=== PATIENT | male | born 1985 | race African-American/Black ===

== ENCOUNTER 2017-08-01 09:45 | Inpatient (IN) | payer MEDICARE, OTHER, MEDICAID ==
[~2017-08-01 09:45] MED LIST: ISOVUE-370 76%-LOCM 1 ML ONE; Iopamidol 370 76% 50 ML VIAL FS ONE
[2017-08-01 10:50] LABS: #Lymphocytes 1.4 thou/uL (1.20-3.40); #Monocytes 1.2 thou/uL (0.11-0.59); #Neutrophils 7.2 thou/uL (1.40-6.50); %Basophils 0.2 % (0.0-1.0); %Eosinophils 0.2 % (0.0-10.0); %Lymphocytes 14.5 % (21.0-51.0); %Monocytes 12.1 % (0.0-10.0); Bilirubin Negative (Negative); Blood, Urine Trace (Negative); Glucose, Urine (Dipstick) Negative (Negative); Hematocrit 41.5 % (42.0-52.0); Ketone, Urine Negative (Negative); Mean Platelet Volume 7.2 fL (7.4-10.4); Nitrite Negative (Negative); Protein, Urine (Dipstick) Negative (Neg-Trace); Red Blood Cell (RBC) Count 4.31 mill/uL (4.70-6.10); White Blood Cell (WBC) Count 9.9 thou/uL (4.8-10.8)
[2017-08-01] MEDS ORDERED: Ondansetron HCl/PF 4 MG/2 ML Vial ONE (11:02)
[2017-08-01] MEDS ORDERED: Morphine 4 MG/ML VIAL ONE (11:02)
[2017-08-01 11:04] LABS: Bacteria/HPF 1+ HPF (None Seen); Hyaline Casts/LPF NONE SEEN LPF (0-3 Hyaline); RBC/HPF None Seen HPF (0-3); Squamous Epithelial 0-3 HPF (0-3); WBC/HPF 0-3 HPF (0-3)
[2017-08-01 11:13] LABS: ALT (SGPT) 14 U/L (8-55); AST (SGOT) 16 U/L (5-34); Alkaline Phosphatase 57 U/L (40-150); Anion Gap 10 mmol/L (10-20); BUN (Urea Nitrogen) 14 mg/dL (8.9-20.6); Bilirubin, Total 0.9 mg/dL (0.2-1.2); Calc. Creatinine Clearance 0 mL/min (70-130); Calcium 9.7 mg/dL (7.8-10.44); Carbon Dioxide 30 mmol/L (22-29); Chloride 100 mmol/L (98-107); Estimated GFR-MDRD Greater than 90; Globulin 3.2 g/dL (2.4-3.5); Lipase 6 U/L (8-78); Protein, Total 7.2 g/dL (6.0-8.3)
[2017-08-01] MEDS ORDERED: Piperacillin/Tazobactam 4.5 GM in Sodium Chloride 0.9% 100 ML IVPB SCH (13:15)
--- NOTE | 2017-08-01 13:28 | CT ---
CT ABDOMEN AND PELVIS WITH CONTRAST: Date: 08/01/17 Multiple axial tomograms obtained through abdomen and pelvis with IV enhancement. Oral contrast was a dministered. HISTORY: Right lower quadrant pain. FINDINGS: Lung bases clear. Liver, spleen, and pancreas appear unremarkable. Adrenal glands and kidneys appear normal. Small bowel loops appear normal caliber. There is inflammatory process in the right lower quadrant which appears to involve the appendix. Ther e is evidence of an appendicolith. The proximal appendix is not well delineated and there is a small abscess collection measuring approximately 4.1 cm AP dimension x 2.0 cm width in the axial plane, and approximately 2.0 cm craniocaudal in the coronal plane. This small abscess collection is located at the base of the appendix and would suggest appendiceal rupture with small associated confined abscess . IMPRESSION: Evidence of confined abscess in the right lower quadrant, which appears to be associated with inflame d appendix. This indicates probable rupture of inflamed appendix with small abscess involving the pro ximal portion of the appendix. Call was made to the ER to discuss the case with Dr. Veloz at the time of dictation. A message was left for him to return call to radiology regarding this case. CODE CR. POS: [facility]
[2017-08-01] MEDS ORDERED: Dextrose 5% in Water 1,000 ML IV PRN (14:11)
[2017-08-01] MEDS ORDERED: Ondansetron HCl/PF 4 MG/2 ML Vial IVP PRN (14:11)
[2017-08-01] MEDS ORDERED: Dextrose 50% Abboject 50 ML SYRINGE SLOW IVP PRN (14:11)
--- NOTE | 2017-08-01 15:00 | HP ---
DATE OF ADMISSION: 08/01/2017 HISTORY OF PRESENT ILLNESS: This is a 31-year-old man with a history of autism and ADHD. The patien t is a resident of a jail. The patient was brought to the emergency department today accompani ed by his healthcare provider. Apparently, the patient has been complaining of abdominal pain since 4 days ago associated with multiple episodes of nonbilious emesis. The abdominal pain was preceded b y multiple loose stools. Although, the patient has had no fevers or chills, he is unable to provide history. Patient's sister arrived later and reports that the patient was adopted. PAST MEDICAL HISTORY: Pertinent for ADHD and cleft palate. PAST SURGICAL HISTORY: Pertinent for facial surgeries to correct a cleft palate. SOCIAL HISTORY: Patient is a resident of a jail. PRE-HOSPITALIZATION MEDICATIONS: Includes trazodone 150 mg p.o. at bedtime, Seroquel 200 mg p.o. t.i .d., and Restoril 15-30 mg p.o. at bedtime p.r.n. ALLERGIES: Patient has no known drug allergies. REVIEW OF SYSTEMS: A 10-point review of systems essentially unremarkable except for as stated in pas t medical history and chief complaint. PHYSICAL EXAMINATION: GENERAL: This reveals a 31-year-old young man who has a history of autism and ADHD, who appears to b e in no acute distress at the time of my evaluation. VITAL SIGNS: Includes blood pressure 124/68, pulse is 98, respiratory rate is 15, temperature 98.5 d egrees Fahrenheit, oxygen saturation 96% on room air. HEENT: Reveals normocephalic and atraumatic. Pupils are equal, round, and reactive to light and acc ommodation. Extraocular muscles are intact bilaterally. No sclerae icterus is present. HEART: Reveals regular rate and rhythm, no murmurs or gallops auscultated. LUNGS: Clear to auscultation bilaterally. Breathing is regular and unlabored. ABDOMEN: Soft and nondistended. He has a palpable fullness in the right lower quadrant, which is te nder to palpation. He has a positive Rovsing sign. Liver and spleen are otherwise nonpalpable below costal margins. EXTREMITIES: Reveals 2+ radial and pedal pulses bilaterally. No ankle edema is present. NEUROLOGICAL: Examination reveals no focal deficits present. IMAGING: I have personally reviewed the CT scan of the abdomen and pelvis, which was obtained today. This reveals moderate size appendicolith as well as periappendiceal fat stranding and 4.1 x 2.0 cm fluid collection with air pockets consistent with periappendiceal abscess. LABORATORY STUDIES: Includes a CBC with 9900 white blood cells, hemoglobin 14.3, hematocrit is 41.5, platelet count is 158,000. Metabolic profile: Sodium 137, potassium is 3.4, chloride is 100, bicar bonate 30, BUN 14, creatinine 0.89, glucose 94, AST and ALT are both normal at 16 and 14 respectively . Serum lipase is also normal at 6. IMPRESSION: 1. Acute appendicitis with perforation. 2. Periappendiceal pelvic abscess. 3. Acute hypokalemia. 4. History of autism. 5. History of attention deficit hyperactivity disorder. PLAN: 1. Continue broad spectrum antibiotics. 2. Laparoscopic appendectomy and drainage of periappendiceal pelvic abscess. Above findings and plan discussed with the patient and his family at bedside. They indicated underst anding of information given. I have answered their questions. The patient's family has granted cons ent for this admission and surgical intervention.
[2017-08-01] MEDS: Sodium Chloride 0.9% 1,000 ML IV SCH (16:15)
[2017-08-01] MEDS ORDERED: Morphine 4 MG/ML VIAL IV PRN (16:30)
[2017-08-01 17:14] VITALS: BMI 23.8
[2017-08-01] MEDS ORDERED: Morphine PF 1 MG/ML SYR IVP PRN (17:52)
[2017-08-01] MEDS: Piperacillin/Tazobactam 3.375 GM in Sodium Chloride 0.9% 100 ML IVPB SCH ×2 (18:06→23:55)
[2017-08-01] MEDS: Morphine PF 1 MG/ML SYR IVP PRN ×2 (18:07→21:56)
[2017-08-01] MEDS: traZODone HCl 150 MG TAB PO SCH (21:35)
[2017-08-01] MEDS: Enoxaparin Sodium 40 MG/0.4 ML SYRINGE SC SCH (21:36)
[2017-08-02] MEDS: Piperacillin/Tazobactam 3.375 GM in Sodium Chloride 0.9% 100 ML IVPB SCH ×4 (05:07→23:58)
[2017-08-02] MEDS: Sodium Chloride 0.9% 1,000 ML IV SCH ×3 (05:07→21:23)
[2017-08-02 05:36] LABS: #Eosinphils 0.1 thou/uL (0.0-0.7); #Lymphocytes 1.8 thou/uL (1.20-3.40); #Monocytes 0.9 thou/uL (0.11-0.59); #Neutrophils 5.7 thou/uL (1.40-6.50); %Basophils 0.2 % (0.0-1.0); %Eosinophils 1.4 % (0.0-10.0); %Monocytes 10.1 % (0.0-10.0); Hematocrit 37.6 % (42.0-52.0); Mean Platelet Volume 7.8 fL (7.4-10.4); Red Blood Cell (RBC) Count 3.93 mill/uL (4.70-6.10); White Blood Cell (WBC) Count 8.4 thou/uL (4.8-10.8)
[2017-08-02 05:43] LABS: Anion Gap 8 mmol/L (10-20); BUN (Urea Nitrogen) 8 mg/dL (8.9-20.6); Calc. Creatinine Clearance 125 mL/min (70-130); Calcium 8.6 mg/dL (7.8-10.44); Carbon Dioxide 28 mmol/L (22-29); Chloride 106 mmol/L (98-107); Estimated GFR-MDRD Greater than 90
[2017-08-02] MEDS ORDERED: Fentanyl 100 MCG/2 ML VIAL ONE (06:45)
[2017-08-02] MEDS ORDERED: Bupivacaine/Epinephrine 0.25% 30 ML VIAL ONE (06:46)
[2017-08-02] MEDS ORDERED: traMADol HCl 50 MG TAB PO PRN (08:56)
--- NOTE | 2017-08-02 09:23 | OP ---
DATE OF OPERATION: 08/02/2017 PREOPERATIVE DIAGNOSES: 1. Acute appendicitis with perforation. 2. Periappendiceal pelvic abscess. POSTOPERATIVE DIAGNOSES: 1. Acute appendicitis with perforation. 2. Periappendiceal pelvic abscess. OPERATIONS PERFORMED: 1. Laparoscopic appendectomy. 2. Drainage of pelvic abscess. SURGEON: Abel Kilpatrick D.O. ANESTHESIA: General endotracheal. ESTIMATED BLOOD LOSS: 20 mL. FLUIDS GIVEN: 700 mL of crystalloids. COUNTS: Sponge and instrument count are certified as correct x2. COMPLICATIONS: None apparent at time of operation. INDICATIONS FOR PROCEDURE: This is a 31-year-old man with history of autism and ADHD. The patient p resented with 4-5 day history of abdominal pain. Clinical and radiographic examination was consisten t with acute appendicitis with perforation and periappendiceal and pelvic abscess. The patient was b rought to the operating room for appendectomy. Findings are consistent with suppurative appendix in a retrocecal position. Also noted was loculated periappendiceal pelvic abscess with significant amount of inflammation. DESCRIPTION OF PROCEDURE: Informed consent obtained from the patient's power of bellhop captain. The patie nt was brought to the operating room and placed in supine position. Following general anesthesia, th e abdomen is sterilely prepped and draped in the usual fashion. Skin below the umbilicus was infiltr ated with 0.25% Marcaine with epinephrine. A small curvilinear infraumbilical incision is made using an 11 scalpel. Umbilical stalk was grasped with Andrés and elevated. Veress needle was inserted th rough the incision and placed in the peritoneal cavity through which the abdomen was insufflated with 2.5 liters of CO2 gas. Intra-abdominal pressure was noted at 1 mmHg. Following abdominal insufflat ion, Veress needle was removed and a 5 mm trocar was introduced using a Visiport under laparoscopy. Laparoscopy reveals proper placement of the port, no injuries to underlying structures. Under direct laparoscopy, a 12 mm left lower quadrant and a 5 mm suprapubic ports were placed after the overlying skin was infiltrated with 0.25% Marcaine with epinephrine and appropriate incisions made. The patient is placed in a Trendelenburg position rotated to his left. I introduced Prestige grasper through the left lower quadrant port site using this to take down omental adhesions which was obscur ing the right lower quadrant. Moderate amount of purulent pus was evacuated using suction. The term inal ileum was placed to approximately 2 feet from the ileocecal junction and I do not see any Meckel 's. Retrocecal suppurative appendix was identified and brought into the operative field. An Endo Ba bcock forceps was introduced through the suprapubic port site grasping the appendix which was elevate d. I then used a [place] dissector to create a rent through the mesoappendix at the base. I then u sed a white load of the Endo-LENA to divide the mesoappendix at the base. Using a blue load of the En do-LENA, the appendix was divided at the appendicocecal junction. Suppurative appendix is delivered o ut of the abdominal cavity using an EndoCatch. Operative site was inspected for good hemostasis. Si te was irrigated with saline and finding no other pathology, laparoscopy was terminated. Fascia of t he left lower quadrant port was closed using 0 Vicryl suture and Endo closure device under laparoscop y. The abdomen was desufflated. All ports and instruments were removed and accounted for. Skin inc isions are closed using 4-0 Monocryl suture in subcuticular fashion. Dermabond was applied over the incisions. The patient tolerated the operation without any apparent complication and was returned to recovery room in a satisfactory condition.
[2017-08-02] MEDS: Acetaminophen 500 MG TAB PO SCH ×3 (10:14→21:21)
[2017-08-02] MEDS: Ketorolac Tromethamine 30 MG/ML VIAL IVP PRN ×3 (10:15→23:58)
[2017-08-02] MEDS: traMADol HCl 50 MG TAB PO PRN ×2 (13:51→21:36)
[2017-08-02] MEDS ORDERED: Lidocaine 1% PF 5 ML VIAL ONE (15:04)
[2017-08-02] MEDS ORDERED: Glycopyrrolate 0.2 MG/ML 5 ML SYRINGE ONE (15:04)
[2017-08-02] MEDS ORDERED: Dexamethasone 20 MG/5 ML VIAL ONE (15:04)
[2017-08-02] MEDS ORDERED: Ketorolac Tromethamine 30 MG/ML VIAL ONE (15:04)
[2017-08-02] MEDS ORDERED: Propofol 200 MG/20 ML VIAL ONE (15:04)
[2017-08-02] MEDS ORDERED: Ondansetron HCl/PF 4 MG/2 ML Vial ONE (15:04)
[2017-08-02] MEDS ORDERED: Esmolol 100 MG/10 ML VIAL ONE (15:04)
[2017-08-02] MEDS: traZODone HCl 150 MG TAB PO SCH (21:21)
[2017-08-02] MEDS: Enoxaparin Sodium 40 MG/0.4 ML SYRINGE SC SCH (21:25)
[2017-08-03] MEDS: Piperacillin/Tazobactam 3.375 GM in Sodium Chloride 0.9% 100 ML IVPB SCH (06:12)
[2017-08-03] MEDS: Ketorolac Tromethamine 30 MG/ML VIAL IVP PRN (06:13)
[2017-08-03] MEDS: Acetaminophen 500 MG TAB PO SCH ×4 (06:13→21:08)
[2017-08-03] MEDS ORDERED: Ibuprofen 600 MG TAB PO PRN (08:01)
[2017-08-03] MEDS ORDERED: Sodium Chloride 0.9% 10 ML ONE (08:30)
[2017-08-03] MEDS: Saccharomyces boulardii 250 MG CAP PO SCH (09:00)
[2017-08-03] MEDS: Amoxicillin/Potassium Clav 875 MG TAB PO SCH ×2 (13:30→21:08)
[2017-08-03] MEDS: Sodium Chloride 0.9% 1,000 ML IV SCH (13:36)
--- NOTE | 2017-08-03 13:58 | PRG ---
DATE OF SERVICE: 08/03/2017 SUBJECTIVE: Mr. Overton is a 31-year-old man with history of autism. The patient is postop day #1, status post laparoscopic appendectomy for acute appendicitis with perfo ration and periappendiceal pelvic abscess. The patient has done well overnight. He had one bout of bilious emesis this morning. Otherwise, denies any nausea at this time. Pain is adequately controlled on oral analgesics. The patient is tolerating clear liquid diet and is having loose bowel movements. OBJECTIVE: VITAL SIGNS: Today includes blood pressure 124/64, pulse 86 and respiration 17. Maximum temperature in the last 24 hours is 98.9 degrees Fahrenheit and oxygen saturation 97% on room air. HEENT: Reveals normocephalic and atraumatic. HEART: Reveals regular rate and rhythm. No murmurs or gallops auscultated. CHEST: Clear to auscultation bilaterally. Breathing is regular and unlabored. ABDOMEN: Soft and nondistended. He has mild tenderness to palpation with no gross rebound present. Liver and spleen remains nonpalpable below costal margins. IMPRESSION: Postoperative day #1, status post laparoscopic appendectomy. The patient is hemodynamically stable. PLAN: Advance diet and activity. Continue IV antibiotics, which could be converted to oral intake once patient remains nausea free for the 46 hours.
[2017-08-03] MEDS: traZODone HCl 150 MG TAB PO SCH (21:08)
[2017-08-03] MEDS: Enoxaparin Sodium 40 MG/0.4 ML SYRINGE SC SCH (21:12)
[2017-08-04] MEDS: Acetaminophen 500 MG TAB PO SCH ×2 (05:09→09:19)
[2017-08-04] MEDS: Amoxicillin/Potassium Clav 875 MG TAB PO SCH (08:15)
[2017-08-04] MEDS: Saccharomyces boulardii 250 MG CAP PO SCH (09:19)
[2017-08-04 12:11] VITALS: BP 116/68; TEMP 98.3
--- NOTE | 2017-08-04 17:40 | DIS ---
DATE OF ADMISSION: 08/01/2017 DATE OF DISCHARGE: 08/04/2017 ADMITTING PHYSICIAN: Abel Kilpatrick DO. DISCHARGING PHYSICIAN: Abel Kilpatrick DO. ADMITTING DIAGNOSES: 1. Acute appendicitis with perforation. 2. Periappendiceal pelvic abscess. DISCHARGE DIAGNOSES: 1. Acute appendicitis with perforation. 2. Periappendiceal pelvic abscess. OPERATIONS PERFORMED: Laparoscopic appendectomy on 08/02/2017. HISTORY AND HOSPITAL COURSE: This is a 31-year-old man with history of autism, who presented with a 4-5 day history of abdominal pain. Clinical and radiographic examination was consistent with acute appendicitis with perforation and per iappendiceal abscess. The patient was placed on IV antibiotics overnight and taken to the operating room on post-admission day #1 for an uneventful laparoscopic appendectomy with drainage of periappendiceal pelvic abscess. On postop day #2 today, patient is ambulating with minimum difficulty. He is tolerating general diet , having normal bowel and urinary function. Pain is adequately controlled on oral analgesics. Incisional wounds remain intact, clean, and dry. The patient has remained hemodynamically stable and afebrile through this hospitalization. He clearly has no peritoneal signs on examination. He will be discharged home today with the following instructions: 1. He sees me in the Surgery [facility] in 2 weeks. 2. He is provided with a prescription for Augmentin 875 mg #8 to be taken 1 p.o. b.i.d. until all ta jeremie. 3. The patient's sister is instructed to call me with any questions or problems, especially any into lerance to oral intake, fever in excess of 101 degrees Fahrenheit, or exacerbation of abdominal pain post discharge. 4. Patient's family indicates understanding of information provided. 5. I have answered their questions.
== END 2017-08-04 13:33 | disposition home or self-care (01) | DRG 339 ==
LOC: ERS 09:45 → 3SE 14:11
PROVIDERS: ADMIT Surgery; ATTEND Surgery
PROC: 0DTJ4ZZ Resection of Appendix, Percutaneous Endoscopic Approach (ICD-10-PCS; principal; 2017-08-02)
PROC: 0W9J4ZZ Drainage of Pelvic Cavity, Percutaneous Endoscopic Approach (ICD-10-PCS; 2017-08-02)
DX: K35.3 Acute appendicitis with localized peritonitis (principal); F84.0 Autistic disorder; F20.9 Schizophrenia, unspecified; K35.2 Acute appendicitis with generalized peritonitis; F90.9 Attention-deficit hyperactivity disorder, unspecified type; E87.6 Hypokalemia; F71 Moderate intellectual disabilities
CPT/HCPCS: 36415; 74177; 80048; 80053; 81003; 81015; 83690; 85025; 88304; 96361; 96365; 96375; A4216; J1100; J1650; J1885; J2001; J2270; J2274; J2405; J2543; J2704; J3010; J7050

== ENCOUNTER 2018-08-03 09:19 | Emergency (ER) | payer MEDICARE, OTHER, MEDICAID ==
[2018-08-03 09:55] LABS: #Eosinphils 0.1 thou/uL (0.0-0.7); #Lymphocytes 1.1 thou/uL (1.20-3.40); #Monocytes 0.5 thou/uL (0.11-0.59); #Neutrophils 6.2 thou/uL (1.40-6.50); %Basophils 0.4 % (0.0-1.0); %Lymphocytes 14.1 % (21.0-51.0); %Monocytes 6.2 % (0.0-10.0); %Neutrophils 78.3 % (42.0-75.0); Hemoglobin 14.7 g/dL (14.0-18.0); Mean Corpuscular HGB CONC 35.2 g/dL (32.0-36.0); Mean Corpuscular Hemoglobin 32.2 pg (27.0-31.0); Mean Corpuscular Volume 91.4 fL (78.0-98.0); Mean Platelet Volume 7.3 fL (7.4-10.4); Platelet Count 217 thou/uL (130-400); RBC Distribution Width 11.6 % (11.5-14.5); Red Blood Cell (RBC) Count 4.57 mill/uL (4.70-6.10)
[2018-08-03 10:18] LABS: ALT (SGPT) 17 U/L (8-55); AST (SGOT) 19 U/L (5-34); Albumin 4.4 g/dL (3.5-5.0); Alkaline Phosphatase 63 U/L (40-150); Anion Gap 11 mmol/L (10-20); BUN (Urea Nitrogen) 21 mg/dL (8.9-20.6); Bilirubin, Total 0.4 mg/dL (0.2-1.2); Calc. Creatinine Clearance 0 mL/min (70-130); Calcium 9.8 mg/dL (7.8-10.44); Carbon Dioxide 27 mmol/L (22-29); Chloride 104 mmol/L (98-107); Estimated GFR-MDRD Greater than 90; Glucose 94 mg/dL (70-105); Lipase 25 U/L (8-78); Potassium 4.1 mmol/L (3.5-5.1); Protein, Total 7.4 g/dL (6.0-8.3); Sodium 138 mmol/L (136-145)
[2018-08-03 11:18] LABS: Bilirubin Negative (Negative); Blood, Urine Large (Negative); Clarity CLOUDY (Clear); Glucose, Urine (Dipstick) Negative (Negative); Leukocyte Trace (Negative); Nitrite Negative (Negative); Protein, Urine (Dipstick) 30 mg/dL (Neg-Trace); Specific Gravity, Urine 1.013 (1.002-1.036); Urobilinogen 0.2 mg/dL (0.2-1.0)
[2018-08-03 11:22] LABS: Bacteria/HPF None Seen HPF (None Seen); Hyaline Casts/LPF 0-3 HYALINE CAST LPF (0-3 Hyaline); Pathc Cast-AUWi Flag 0.26 (0-2.49); RBC/HPF GREATER THAN 50-TNTC HPF (0-3); Squamous Epithelial 0-3 HPF (0-3)
--- NOTE | 2018-08-03 11:38 | CT ---
CT ABDOMEN WITH CONTRAST CT PELVIS WITH CONTRAST: DATE: 08/03/2018 HISTORY: A 32-year-old male with gross hematuria, abdominal pain, nausea, and vomiting. COMPARISON: 08/01/2017 TECHNIQUE: IV injection of iodinated contrast media: Isovue-370 100 mL. Oral contrast media: Not administered. FINDINGS: The previously demonstrated abscess in the right pelvic inlet and the surrounding edema have resolved . Currently, there is an uninflamed, appendiceal stump, distal to which there are surgical clips. T here is no diverticulitis. The liver, abdominal aorta, adrenals, pancreas, kidneys, and spleen are n ormal. No small bowel dilation. Normal thin mosher of the urinary bladder. No renal calculus identi fied. No solid or cystic renal mass identified. Bilateral nephrograms are symmetrical. The lung ba ses are grossly clear. No pneumoperitoneum or ascites. IMPRESSION: 1. Status post subtotal appendectomy. Appendiceal stump remains, which is currently not inflamed. 2. Otherwise negative. LORI Culp POS: [facility]
[2018-08-03] MEDS ORDERED: Iopamidol 370 76% 100 ML VIAL ONE (16:17)
[2018-08-06 13:14] LABS: Chlamydia trachomatis by NAA Negative (Negative)
== END 2018-08-03 13:37 | disposition home or self-care (01) ==
LOC: ERS 09:19
DX: N39.0 Urinary tract infection, site not specified (principal); F20.9 Schizophrenia, unspecified; Z79.899 Other long term (current) drug therapy
CPT/HCPCS: 36415; 74177; 80053; 81003; 81015; 83690; 85025; 87086; 87491; 87591; 96360